=== PATIENT | male | born 1975 | race Caucasian/White ===

== ENCOUNTER 2020-07-31 21:11 | Inpatient (IN) | payer OTHER ==
[~2020-07-31] VITALS: Ht 177.8 cm; Wt 117.9 kg
[~2020-07-31 21:11] MED LIST: KEFLEX250 MG
--- NOTE | 2020-07-31 22:59 | HC ---
[facility] [place] [address] CONSULTATION Name: ANASTASIIA REA Room #: [facility]#: [id number] Admission: 07/31/20 Attend Phys: Discharge: Date of : 77 Report #: [id number] THIS REPORT FOR: cc: [facility] - No family physician/PCP LASHA - No family physician/PCP Panda Stuart MD [facility] ~ CC: Panad COLBY physician/PCP DATE OF SERVICE: 07/31/2020 REASON FOR CONSULTATION: Chest pain, elevated troponin. HISTORY OF PRESENT ILLNESS: The patient is a 45-year-old gentleman with a history of tobacco dependency and dyslipidemia. On Tuesday, he developed midsternal chest pain, which he thought was "rib out of place." The pain persisted off and on since then, although became more pronounced earlier today. He has been taking ibuprofen, which has not particularly helped the discomfort. He presented to the Emergency Department at the urging of his for his troponin was elevated. EKG demonstrated 0.[address] elevation. He was life-flighted to [facility]. No heart failure symptoms including orthopnea, paroxysmal nocturnal dyspnea, or lower extremity edema. No history of palpitations, near syncope or syncope. ALLERGIES: No known drug allergies. MEDICATIONS: He takes omeprazole 40 mg twice daily and a cholesterol medicine. PAST MEDICAL HISTORY: Medical records have been reviewed and include a history of bilateral knee surgeries. SOCIAL HISTORY: He is and nondrinker. Drives a trash truck. He smokes 4 packages of cigarettes a day. FAMILY HISTORY: Brother at 35 of a myocardial infarction. Dad at 56 of an [place]. Mother of cancer, although had a history of coronary artery disease and at the age of 63. REVIEW OF SYSTEMS: All systems negative except as that noted above. PHYSICAL EXAMINATION: GENERAL: A pleasant gentleman in no distress. VITAL SIGNS: Blood pressure is 130/70, heart rate of 82 and regular, respirations unlabored at 18. HEENT: There are neither xanthelasma, subcutaneous xanthomata, oral mucosal or [facility] [address] [place] [address] CONSULTATION Name: ANASTASIIA REA Room #: [facility]#: [id number] Admission: 07/31/20 Attend Phys: Discharge: Date of : 77 Report #: [id number] digital cyanosis or kyphoscoliosis present. CHEST: Clear to auscultation and percussion. CARDIAC: Regular rate and rhythm with normal S1, S2. No murmurs or rubs. ABDOMEN: Soft and nontender. EXTREMITIES: Without cyanosis, clubbing or edema. Radial pulses are 2+. NEUROLOGIC: He is alert with a nonfocal exam. LABORATORY DATA: Troponin is 11.7, creatinine 0.15. Sodium is 142, potassium 4.0. Coagulation parameters are normal. Hemoglobin is 15.6 and hematocrit 44.1. Chest x-ray is normal. IMPRESSION: 1. ST segment elevation myocardial infarction. 2. Tobacco dependency. 3. Dyslipidemia. RECOMMENDATIONS: 1. Therapy with aspirin, antiplatelet and anticoagulants. 2. Coronary angiography. The angiographic procedure was discussed in detail including its associated risks. After a thorough discussion of the procedure, its risks and alternatives and after answering his questions, he is agreeable to proceeding. <ELECTRONICALLY SIGNED> By: Panda Stuart MD, [facility] 07/31/20 2259 32 46 Panda Stuart MD, FAC /nt
--- NOTE | 2020-08-01 00:26 | NUR ---
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 SIMENTAL. AND THE ADMIT TO ROOM 209 POST PROCEDURE. ON BEDREST. RIGHT GROIN SITE IS CLEAN AND DRY AND INTACT. NO EDEMA. PT IS ALERT AND ORIENTED PT SLEEY. VITALS ARE STABLE. WILL CONTINUE TO MONITOR AND ASSESS VITALS AND GROIN SITE POST PROCEDURE.
[2020-08-01 04:09] LABS: HEMATOCRIT 44.8 % (42.0-52.0); HEMOGLOBIN 15.4 gm/dL (14.0-18.0); MCH 33.8 pg (26.0-34.0); MCHC 34.4 g/dL (28.0-37.0); MCV 98.2 fL (80.0-100.0); RBC 4.56 mil/uL (4.50-6.00); RDW 13.4 % (10.5-14.5); WBC 13.5 thou/uL (4.0-11.0)
--- NOTE | 2020-08-01 04:34 | NUR ---
RESTING ONGOING NURISNG CARE POST CATH PROCEDURE. CALL LIGHT WITHIN REACH IF NEEEDS NURSING ASSSISTANCE. NO ISSUES OR CONCERNS NOTED. GROIN SITE RIGHT DRY AND INTACT NO HEMATOMA NOTED. NO PAIN ISSUES. SLEEPING.
[2020-08-01 04:45] VITALS: BP 118/61
[2020-08-01 05:39] LABS: CALCIUM 8.9 mg/dL (8.5-10.1)
[2020-08-01 05:49] LABS: ALBUMIN 3.5 g/dL (3.4-5.0); TOTAL BILIRUBIN 0.6 mg/dL (0.2-1.0); TOTAL PROTEIN 6.8 g/dL (6.4-8.2)
[2020-08-01 05:52] LABS: TROPONIN-I 11.93 ng/mL (<0.06)
[2020-08-01 05:53] LABS: CHOLESTEROL 144 mg/dL (<200); HDL CHOLESTEROL 23 mg/dL (>40); LDL CHOLESTEROL 56 mg/dL (<100); TC:HDL 6.3 Ratio (Not establshd); TRIGLYCERIDE 327 mg/dL (<150); VLDL 65 mg/dL (<40)
[2020-08-01 05:54] LABS: SERUM ASSESSMENT Clear
--- NOTE | 2020-08-01 07:45 | EKG ---
[facility] [place] [address] ELECTROCARDIOGRAM REPORT Name: ANASTASIIA REA Room #: 209-P ADM IN M.R.#: [id number] Admission: 07/31/20 Attend Phys: Charles De La Rosa MD Discharge: Date of : 77 Report #: [id number] THIS REPORT FOR: cc: LASHA Mari family physician/PCP LASHA - Jacey family physician/PCP Kurt Nugent MD [facility] THIS REPORT FOR: //name// [facility] Test Date: 2020-08-01 Test Time: 06:58:17 Pat Name: ANASTASIIA REA Department: Room: 209 Gender: M Commercial Lending Relationship Manager: KATHIE : 1975 Requested By: Panda Stuart Order Number: [id number] MD: Kurt Nugent Measurements Intervals [place] Rate: 70 P: -6 MS: 157 QRS: -7 QRSD: 81 T: 101 QT: 380 QTc: 410 Interpretive Statements Sinus rhythm Consider inferior infarct Nonspecific T abnormalities, lateral leads Baseline wander in lead(s) V1,V2 Compared to ECG 04/24/2015 00:38:30 Myocardial infarct finding now present T-wave abnormality now present Electronically Signed On 08-01-2020 7:45:10 CDT by Kurt Nugent [email or web address] <ELECTRONICALLY SIGNED> By: Kurt Nugent MD, [facility] 08/01/20 0745 7 Kurt Nugent MD, [facility] /EPI
[2020-08-01 08:05] VITALS: BP 129/72
[2020-08-01] MEDS ORDERED: EFFIENT10 MG PO (08:16)
[2020-08-01] MEDS ORDERED: ASPIRIN325 PO (08:16)
[2020-08-01] MEDS ORDERED: LIPITOR40 MG PO (08:16)
[2020-08-01] MEDS ORDERED: METOPROLOL SUCC25 M1 PO (08:16)
--- NOTE | 2020-08-01 08:50 | CATHLAB ---
[facility] [place] [address] INVASIVE PROCEDURE REPORT Name: ANASTASIIA REA Room #: 209-P ADM IN M.R.#: [id number] Admission: 07/31/20 Attend Phys: Charles De La Rosa MD Discharge: Date of : 77 Report #: [id number] THIS REPORT FOR: cc: FAM - No family physician/PCP FAM - No family physician/PCP Panda Stuart MD [facility] ~ APPROVED REPORT Study performed: 07/31/2020 21:16:46 Patient Details Patient Status: ED Room #: The patient is a 45 year-old male Event Personnel Panda Stuart Tearer, Koko Alvarez RN, Kim Cardona RTR Pasquale Scott Ja'net RTR Monitor Procedures Performed Left Heart Cath w/or w/o Coronaries 0320299 [facility] Art Access - R femoral artery* VU Revasc AMI Total/Sub Single PDA C9606 AMIREVSING Hemostasis w/ Mynx 53802 Initial Mod Sed Same Phys/QHP Gr5y 270163 93973 Mod Sed Same Phys/QHP Ea 315914 Indication Chest pain Procedure Narrative The patient was brought emergently to the Cardiac Catheterization Laboratory and was prepped and draped in a sterile manner. The Right Groin^ was infiltrated with 1% Lidocaine subcutaneous anesthesia. A PINNACLE 6FR Sheath #[id number] sheath was inserted into the RFA^. Coronary angiography was performed using coronary diagnostic catheters. The right coronary system was accessed and visualized with a 6FR AL I #[id number] catheter. The left coronary system was accessed and visualized with a JL4 catheter. The left ventricle was accessed and visualized with a PIGTAIL catheter. The patient tolerated the procedure well and there were no complications associated with the procedure. There was no hematoma. Intraoperative Conscious Sedation Sedation start time: 21:34 Case end Time: 23:08 Fentanyl 100 mcg Versed 2 mg [facility] [place] [address] INVASIVE PROCEDURE REPORT Name: ANASTASIIA REA Room #: 209-P [facility] IN [facility].#: [id number] Admission: 07/31/20 Attend Phys: Charles De La Rosa MD Discharge: Date of : 77 Report #: [id number] Fluoro Time: 29.41 minutes Dose: DAP 56330.60 cGycm2 5009 mGy Contrast Type and Amount: Omnipaque 290 ml Coronary Angiography The patient's coronary anatomy is right dominant. [place] Artery Percent Stenosis Multiple catheters were used to try and isolate and selectively engage the right coronary. The ostium of the right coronary was high and within the left coronary cusp. The right coronary was ultimately engaged with an AL 1 modified catheter. Diagnostic Cath Left Main Large left main with mild 10-20% distal plaquing LAD Mild proximal LAD plaquing Circumflex Large, nondominant circumflex OM1 Small first marginal branch, angiographically normal OM2 Normal, large bifurcating OM Right Coronary Dominant right coronary with its origin within the left coronary cusp. Mild 20-30% long mid right coronary plaquing R PDA Occluded posterior descending just after its origin RPLV Bifurcating posterior lateral branch, angiographically normal Left Ventriculography The left ventricle is normal in size with normal contractility. The left ventricular ejection fraction is estimated to be 60%. Left ventricular wall motion abnormalities are present. There is no mitral insufficiency. Minimal inferior wall hypokinesis Hemodynamics The aortic pressure is 142/38 mmHg with a mean of 96 mmHg. The left ventricular pressure is 128/7 mmHg with a mean of mmHg. The left ventricular end diastolic pressure is 32 mmHg. PCI Technique Lesion Anticoagulation was achieved with Heparin, Integrilin. Patient was preloaded with Effient. Percutaneous coronary intervention was performed on the right posterior descending artery. The lesion stenosis prior to intervention was 100% with KATIA 0 flow. A LAUNCHER [facility] [address] [place] [address] INVASIVE PROCEDURE REPORT Name: RONAAMIEJAIRO Winters Room #: 209-P [facility] IN ..#: [id number] Admission: 07/31/20 Attend Phys: Charles De La Rosa MD Discharge: Date of : 77 Report #: [id number] 6FR AL1 #[id number] Guide Catheter was used to engage the PDA ostium. A Hetal Wire .014 x 182CM #[id number] Interventional Guidewire was used to cross the lesion. BALLOON DILATION A Balloon catheter Euphora RX 2.5 x 12 #[id number] was inserted and inflated up to 8.00atm for 25seconds. Repeat angiography revealed the following post-dilatation results: Moderately severe long proximal PDA stenosis. KATIA II flow restored. Additional Inflation: 6.00atm for 7seconds. Additional Inflation: 6.00atm for 30seconds. ADDITIONAL INFLATIONS: 6 chandni at 22sec/min. Very difficult to isolate and selectively engaged the ostium of the right coronary. STENT DEPLOYMENT A stent RESOLUTE BHAKTI RX 2.5 X 18 #[id number] was inserted and inflated up to 14.00atm for 30seconds. POST STENT DEPLOYMENT BALLOON DILATION A Balloon catheter Euphora NC RX 2.5 x 12 #[id number] was inserted and inflated up to 18.00atm for 24seconds. Additional Inflation: 20.00atm for 29seconds. Additional Inflation: 20.00atm for 23seconds. Final angiography reveals 0 % stenosis with KATIA 3 flow. Conclusion 1. Normal left ventricular systolic function with minimal inferior wall hypokinesis. EF 60% 2. Left main 20% distal plaquing 3. Mild proximal LAD plaquing. Normal, nondominant circumflex 4. Complete occlusion of the posterior descending, stented with a 2.5 x 18 mm Resolute stent. 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 08/01/20849 9 9 Panda Stuart MD, [facility] /INF
--- NOTE | 2020-08-01 11:08 | 2DMMODE ---
[facility] [place]ael [place] [address] 2 D/M-MODE ECHOCARDIOGRAM Name: ANASTASIIA REA Room #: 209-P ADM IN M.R.#: [id number] Admission: 07/31/20 Attend Phys: Charles De La Rosa MD Discharge: Date of : 77 Report #: [id number] THIS REPORT FOR: cc: LASHA - No family physician/PCP FAM - No family physician/PCP Panda Stuart MD [facility] ~ APPROVED REPORT Study performed: 08/01/2020 09:31:36 EXAM: Comprehensive 2D, Doppler, and color-flow Echocardiogram Patient Location: Bedside Room #: 209 Status: routine BSA: 2.33 HR: 67 bpm BP: 129/72 mmHg Rhythm: NSR Other Information Study Quality: Good Indications CAD Hypertension/HDD STEMI 2D Dimensions RVDd: 33.66 mm IVSd: 12.24 (7-11mm) LVOT Diam: 21.42 (18-24mm) LVDd: 40.78 mm PWd: 11.83 (7-11mm) Ascending Ao: 33.62 (22-36mm) LVDs: 29.27 (25-40mm) Aortic Root: 33.02 mm Volumes Left Atrial Volume (Systole) Single Plane 4CH: 52.44 mL Single Plane 2CH: 38.88 mL LA ESV Index: 21.00 mL/m2 Aortic Valve AoV Peak Tommy.: 1.29 m/s AO Peak Gr.: 6.68 mmHg LVOT Max P.85 mmHg LVOT Max V: 1.10 m/s [facility] [address] [place] [address] 2 D/M-MODE ECHOCARDIOGRAM Name: ANASTASIIA REA Room #: 209-P [facility] IN .Su.#: [id number] Admission: 07/31/20 Attend Phys: Charles De La Rosa MD Discharge: Date of : 77 Report #: [id number] Vmax: 3.07 cm2 Mitral Valve E/A Ratio: 1.7 MV Decel. Time: 212.45 ms MV E Max Tommy.: 0.83 m/s MV A Tommy.: 0.49 m/s MV PHT: 61.61 ms IVRT: 87.66 ms Pulmonary Valve PV Peak Tommy.: 1.04 m/s PV Peak Gr.: 4.29 mmHg Pulmonary Vein P Vein S: 0.45 m/s P Vein A: 0.33 m/s P Vein D: 0.30 m/s P Vein A Dur.: 92.3 msec P Vein S/D Ratio: 1.50 Left Ventricle The left ventricle is normal size. Mild concentric left ventricular hypertrophy. Left ventricular systolic function is normal. The left ventricular ejection fraction is within the normal range. LVEF is 55-60%. Minimal inferior wall hypokinesis. The left ventricular diastolic function is normal. Right Ventricle The right ventricle is normal size. The right ventricular systolic function is normal. Atria The left atrium size is normal. The right atrium size is normal. Aortic Valve The aortic valve is normal in structure. No aortic regurgitation is present. There is no aortic valvular stenosis. Mitral Valve The mitral valve is normal in structure. There is no mitral valve regurgitation noted. No evidence of mitral valve stenosis. Tricuspid Valve The tricuspid valve is normal in structure. There is no tricuspid valve regurgitation noted. Pulmonic Valve [facility] [address] [place] [address] 2 D/M-MODE ECHOCARDIOGRAM Name: ANASTASIIA REA Room #: 209-P [facility] IN .R.#: [id number] Admission: 07/31/20 Attend Phys: Charles De La Rosa MD Discharge: Date of : 77 Report #: [id number] The pulmonary valve is normal in structure. There is no pulmonic valvular regurgitation. Great Vessels The aortic root is normal in size. IVC is not well visualized. Pericardium There is no pericardial effusion. <Conclusion> Left ventricular systolic function is normal. LVEF is 55-60%. Minimal inferior wall hypokinesis. The left ventricular diastolic function is normal. The aortic valve is normal in structure. No aortic regurgitation or stenosis. The mitral valve is normal in structure. No mitral valve regurgitation. Pulmonary artery pressure could not be reliably ascertained There is no pericardial effusion. <ELECTRONICALLY SIGNED> By: Panda Stuart MD, [facility] 08/01/20 1108 1108 1108 Panda Stuart MD, [facility] /INF
[2020-08-01 12:08] VITALS: BP 120/65
[2020-08-01] MEDS ORDERED: LISINOPRIL5 MG PO (15:52)
--- NOTE | 2020-08-01 16:59 | NUR ---
ASSESSMENT CHARTED. PT ALERT AND ORIENTED. VSS. DENIED HAVING PAIN OR DISCOMFORT. RIGHT GROIN INCISION C/D/I. NO HEMATOMA NOTED. AMBULATED X1 THIS SHIFT. SON NOTED WITH ACTIVITY. NO CARDIAC DISTRESS NOTED. NO CONCERNS AT THIS TIME.
[2020-08-01 17:15] VITALS: BP 121/73
[2020-08-01 20:50] VITALS: BP 117/76
--- NOTE | 2020-08-02 02:50 | NUR ---
Assessment as documented.Pt been resting in no acute distress.S/p cardiac pura w/interventions.Right groin dressing cdi,no hematoma.NSR on monitor.up ad elizabeth in the room.Denies chest pain or any discomfort.Pt to discharge to home today.
[2020-08-02 04:57] VITALS: BP 114/69
[2020-08-02 07:55] VITALS: BP 121/76
[2020-08-02] MEDS ORDERED: ACETAMINOPHEN325 M1 PO (12:15)
[2020-08-02] MEDS ORDERED: NICOTINE TRANSD21 M1 TRANSDERM (12:15)
[2020-08-02 12:39] VITALS: BP 121/76
--- NOTE | 2020-08-02 12:52 | NUR ---
ASSESSMENT CHARTED. PT ALERT AND ORIENTED. VSS. DENIED HAVING PAIN OR DISCOMFORT. SEEN BY DR. KIM AND DR. DUNN. ORDERS GIVEN TO DISCHARGE PT TO HOME. DISCHARGE INSTRUCTIONS GIVEN TO PT AND THE . THEY BOTH VERBERLISED UNDERSTANDING.
== END 2020-08-02 12:52 | disposition home or self-care (01) | DRG 247 ==
LOC: ER 21:11 → 2N 23:05
PROVIDERS: Internal Medicine; ADMIT Internal Medicine; ATTEND Internal Medicine
PROC: B2111ZZ Fluoroscopy of Multiple Coronary Arteries using Low Osmolar Contrast (ICD-10-PCS; principal; 2020-07-31)
PROC: 4A023N7 Measurement of Cardiac Sampling and Pressure, Left Heart, Percutaneous Approach (ICD-10-PCS; principal; 2020-07-31)
PROC: 027034Z Dilation of Coronary Artery, One Artery with Drug-eluting Intraluminal Device, Percutaneous Approach (ICD-10-PCS; principal; 2020-07-31)
PROC: B2151ZZ Fluoroscopy of Left Heart using Low Osmolar Contrast (ICD-10-PCS; principal; 2020-07-31)
DX: I21.19 ST elevation (STEMI) myocardial infarction involving other coronary artery of inferior wall (principal); Q24.5 Malformation of coronary vessels; E78.5 Hyperlipidemia, unspecified; K21.9 Gastro-esophageal reflux disease without esophagitis; K59.00 Constipation, unspecified; F17.210 Nicotine dependence, cigarettes, uncomplicated; Z82.49 Family history of ischemic heart disease and other diseases of the circulatory system; Z71.6 Tobacco abuse counseling; Z79.899 Other long term (current) drug therapy
CPT/HCPCS: 10081

== ENCOUNTER → 2021-12-11 | Outpatient (CLI) | payer OTHER ==
[~2021-12-11] MED LIST changes: +ACETAMINOPHEN325 M1 PO; +ASPIRIN325 PO; +EFFIENT10 MG PO; +LIPITOR40 MG PO; +LISINOPRIL5 MG PO; +METOPROLOL SUCC25 M1 PO; +NICOTINE TRANSD21 M1 TRANSDERM
== END ==
LOC: SJCVCIMAG 11:32
PROVIDERS: ATTEND Internal Medicine
DX: I25.10 Atherosclerotic heart disease of native coronary artery without angina pectoris (principal); I10 Essential (primary) hypertension; E78.5 Hyperlipidemia, unspecified; Z95.5 Presence of coronary angioplasty implant and graft